=== PATIENT | female | born 1960 | race Caucasian/White ===

== ENCOUNTER 2017-07-08 20:17 | Emergency (ER) | payer OTHER ==
[2017-07-08] MEDS ORDERED: guaiFENesin/Codeine Phosphate 100 mg/10 mg 5 ml UD Cup ONE (21:21)
== END 2017-07-08 21:35 | disposition home or self-care (01) ==
LOC: MADERS 20:17
DX: J01.90 Acute sinusitis, unspecified (principal); K43.9 Ventral hernia without obstruction or gangrene; F41.9 Anxiety disorder, unspecified; F17.210 Nicotine dependence, cigarettes, uncomplicated; Z79.899 Other long term (current) drug therapy
CPT/HCPCS: 99283

== ENCOUNTER 2017-08-19 11:27 | Outpatient (CLI) | payer OTHER ==
--- NOTE | 2017-08-19 13:40 | RAD ---
PA AND LATERAL CHEST: Indication: Bronchitis, active airway disease. Comparison: None. FINDINGS: No focal consolidation is evident. The lungs are hyperinflated. No pleural effusion or pneumothorax i s evident. Heart size is within normal limits. No acute osseous abnormality is noted. IMPRESSION: Hyperinflation without evidence of consolidation. No pneumothorax demonstrated. POS: [facility]
== END 2017-08-19 11:28 | disposition home or self-care (01) ==
LOC: MADRAD 11:27
PROVIDERS: ATTEND Family Medicine
DX: J45.909 Unspecified asthma, uncomplicated (principal); J20.9 Acute bronchitis, unspecified; J98.4 Other disorders of lung
CPT/HCPCS: 71046

== ENCOUNTER 2021-05-02 11:46 | Emergency (ER) | payer OTHER ==
[2021-05-02] MEDS ORDERED: Ketorolac Tromethamine 30 MG/ML VIAL ONE (12:23)
[2021-05-02 13:32] LABS: #Basophils 0.1 thou/uL (0.0-0.2); #Lymphocytes 1.2 thou/uL (1.20-3.40); #Neutrophils 9.3 thou/uL (1.40-6.50); %Eosinophils 0.3 % (0.0-10.0); %Lymphocytes 10.2 % (21.0-51.0); %Monocytes 8.4 % (0.0-10.0); Hemoglobin 10.8 g/dL (12.0-16.0); Mean Corpuscular HGB CONC 33.4 g/dL (32.0-36.0); Mean Corpuscular Hemoglobin 31.4 pg (27.0-31.0); Mean Platelet Volume 5.7 fL (7.4-10.4); Platelet Count 502 thou/uL (130-400); Red Blood Cell (RBC) Count 3.43 mill/uL (4.20-5.40); White Blood Cell (WBC) Count 11.6 thou/uL (4.8-10.8)
[2021-05-02] MEDS ORDERED: Azithromycin 500 MG VIAL ONE (13:43)
[2021-05-02] MEDS ORDERED: Sodium Chloride 0.9% 250 ML 250 ML ONE (13:43)
[2021-05-02] MEDS ORDERED: cefTRIAXone\\ROCEPHIN 1 GM VIAL ONE (13:43)
[2021-05-02 13:51] LABS: ALT (SGPT) 13 U/L (8-55); AST (SGOT) 16 U/L (5-34); Albumin 3.8 g/dL (3.5-5.0); Alkaline Phosphatase 91 U/L (40-110); Anion Gap 15 mmol/L (10-20); BUN (Urea Nitrogen) 17 mg/dL (9.8-20.1); Bilirubin, Total 0.4 mg/dL (0.2-1.2); Calc. Creatinine Clearance 0 mL/min (70-130); Calcium 9.3 mg/dL (7.8-10.44); Carbon Dioxide 23 mmol/L (22-29); Chloride 100 mmol/L (98-107); Globulin 3.1 g/dL (2.4-3.5); Glucose 97 mg/dL (70-105); Lipase 13 U/L (8-78); Magnesium 1.9 mg/dL (1.6-2.6); Potassium 3.6 mmol/L (3.5-5.1); Protein, Total 6.9 g/dL (6.0-8.3); Sodium 134 mmol/L (136-145)
[2021-05-02] MEDS ORDERED: Sodium Chloride 0.9% 500 ML ONE (14:01)
[2021-05-02 14:29] LABS: Base Excess-Venous -0.4 mmol/L (-2.0 to 3.0); Bicarbonate (HCO3v) 23.2 mmol/L (22.0-28.0); CO2 Tension (PvCO2) 33.4 mmHg (42.0-51.0); Calcium, Ionized 1.09 mmol/L (1.15-1.33); Chloride 99 mmol/L (98-107); Hemoglobin - Calc 10.4 g/dL (12.0-16.0); Potassium 3.6 mmol/L (3.5-5.1); Sodium 134 mmol/L (138-145); T. Carbon Dioxide 24.3 mmol/L (22.0-28.0); vO2 Saturation-calc 84.5 % (60.0-85.0)
[2021-05-02] MEDS ORDERED: Iopamidol 370 76% 100 ML VIAL ONE (14:42)
[2021-05-02 15:24] LABS: SARS-CoV-2 NAA Rapid Test Not Detected (NotDetected)
[2021-05-02 16:00] LABS: Hemoglobin 10.6 g/dL (12.0-16.0)
== END 2021-05-02 17:05 | disposition short-term general hospital (02) ==
LOC: MADERS 11:46
DX: A41.9 Sepsis, unspecified organism (principal); J18.9 Pneumonia, unspecified organism; J90 Pleural effusion, not elsewhere classified; M54.50 Low back pain, unspecified; Z20.822 Contact with and (suspected) exposure to COVID-19; I10 Essential (primary) hypertension; E78.5 Hyperlipidemia, unspecified; E78.00 Pure hypercholesterolemia, unspecified; Z87.891 Personal history of nicotine dependence; Z79.899 Other long term (current) drug therapy
CPT/HCPCS: 71260; 74177; 80053; 82330; 82803; 83605; 83690; 83735; 83880; 84484; 85025; 87040; 93005; 96365; 96372; 96375; J0456; J0696; J1885; J7030; J7050; Q9967; U0002

== ENCOUNTER 2021-05-21 06:20 | Emergency (ER) | payer MEDICARE, MEDICAID ==
[2021-05-21] MEDS ORDERED: Ondansetron ODT 4 MG TAB ONE (07:07)
[2021-05-21] MEDS ORDERED: Morphine 4 MG/ML VIAL ONE (07:07)
[2021-05-21] MEDS ORDERED: HYDROcodone/Acetaminophen 10/325 mg Tablet ONE (08:08)
== END 2021-05-21 08:16 | disposition home or self-care (01) ==
LOC: MADERS 06:20
DX: J20.9 Acute bronchitis, unspecified (principal); B97.29 Other coronavirus as the cause of diseases classified elsewhere; I10 Essential (primary) hypertension; E78.5 Hyperlipidemia, unspecified; E78.00 Pure hypercholesterolemia, unspecified; Z87.891 Personal history of nicotine dependence; Z79.52 Long term (current) use of systemic steroids; Z79.899 Other long term (current) drug therapy
CPT/HCPCS: 96374; J2270; Q0162

== ENCOUNTER 2021-05-23 12:29 | Emergency (ER) | payer MEDICARE, MEDICAID | END 2021-05-23 13:55 | disposition home or self-care (01) | LOC: MADERS 12:29 | DX: G89.29 Other chronic pain (principal); E78.5 Hyperlipidemia, unspecified; E78.00 Pure hypercholesterolemia, unspecified; I10 Essential (primary) hypertension; Z87.891 Personal history of nicotine dependence | CPT/HCPCS: 99283 ==